=== PATIENT | female | born 1975 | race Caucasian/White ===

== ENCOUNTER → 2016-07-16 | Outpatient (CLI) | payer OTHER, MEDICAID ==
[~2016-07-16] MED LIST: ALBU8.5H3 INH; FLUO20CA8 PO; LEVO750T26 PO
== END | disposition home or self-care (01) ==
LOC: CFH 16:57
PROVIDERS: ATTEND Nurse Practitioner Family
DX: J44.1 Chronic obstructive pulmonary disease with (acute) exacerbation (principal); J20.9 Acute bronchitis, unspecified
CPT/HCPCS: 71020

== ENCOUNTER → 2017-05-27 | Outpatient (CLI) | payer OTHER ==
[~2017-05-27] MED LIST changes: -ALBU8.5H3 INH; +ALBU8.5H8 INH
== END | disposition home or self-care (01) ==
LOC: CFH 10:42
PROVIDERS: ATTEND Nurse Practitioner Family
DX: R07.9 Chest pain, unspecified (principal); R06.00 Dyspnea, unspecified
CPT/HCPCS: 71046

== ENCOUNTER 2018-10-07 13:37 | Outpatient (CLI) | payer MEDICAID, OTHER | END 2018-10-07 23:59 | disposition home or self-care (01) | LOC: CFH 13:37 | PROVIDERS: ATTEND Internal Medicine | DX: R06.02 Shortness of breath (principal) | CPT/HCPCS: 71250 ==

== ENCOUNTER 2019-01-06 12:51 | Emergency (ER) | payer MEDICAID ==
[~2019-01-06] VITALS: Ht 172.7 cm; Wt 124.0 kg
[2019-01-06 13:58] LABS: RAPID INFLUENZA A Negative (Negative); RAPID INFLUENZA B Negative (Negative)
[2019-01-06 14:02] LABS: BASOPHILS % (AUTO) 0 % (0-1); EOSINOPHILS # (AUTO) 0.01 x10^3/uL (0-0.4); EOSINOPHILS % (AUTO) 0 % (1-7); LYMPHOCYTES # (AUTO) 0.41 x10^3/uL (1-3.4); LYMPHOCYTES % (AUTO) 5 % (22-44); MD NO; MEAN CORPUSCULAR HEMOGLOBIN 31.5 pg (27.0-34.8); MEAN CORPUSCULAR HGB CONC 32.9 g/dL (32.4-35.8); MEAN CORPUSCULAR VOLUME 95.6 fL (80-100); MEAN PLATELET VOLUME 8.3 fL (7.4-10.4); MONOCYTES % (AUTO) 6 % (2-9); NEUTROPHILS # (AUTO) 7.64 x10^3/uL (1.8-6.8); NEUTROPHILS % (AUTO) 89 % (42-75); PLATELET COUNT 307 x10^3/uL (130-400); RED BLOOD COUNT 4.94 x10^6/uL (3.82-5.3); RED CELL DISTRIBUTION WIDTH 17.1 % (9.6-15.2)
[2019-01-06 14:08] LABS: ALANINE AMINOTRANSFERASE 25 U/L (12-78); ALBUMIN 3.4 g/dL (3.4-5.0); ANION GAP 7 mmol/L (5-15); CALCIUM 8.5 mg/dL (8.5-10.1); CHLORIDE 103 mmol/L (98-107); CREATININE 0.93 mg/dL (0.55-1.02)
[2019-01-06 14:10] LABS: ALKALINE PHOSPHATASE 90 U/L (45-117); BILIRUBIN,TOTAL 0.5 mg/dL (0.2-1.0); TOTAL PROTEIN 7.4 g/dL (6.4-8.2)
--- NOTE | 2019-01-06 14:23 | NUR ---
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
--- NOTE | 2019-01-06 14:38 | NUR ---
PT HERE TODAY FOR SOB AND COUGH THAT STARTED LAST NIGHT. DENIES CP. STATES SHE "GETS PNA AND GOES SEPTIC. WANTED TO GET AHEAD OF IT THIS TIME." PT RESTING ON GURNEY. CONNECTED TO MONITOR. OCCASSIONAL COUGH. NON PRODUCTIVE. STRONG. FAMILY AT BEDSIDE. MD WAS AT BEDSIDE TO ASSESS PT. NADN. VSS. PROVIDED WITH BLANKET. LABS AND CXR RESULTS BACK. MD HAS ORDERED RT TREATMENT. PT AWARE OF POC.
[2019-01-06] MEDS ORDERED: KETOROLAC 60 MG/2 ML ONE (14:43)
--- NOTE | 2019-01-06 14:45 | NUR ---
PT MEDICATED PER EMAR.
[2019-01-06] MEDS ORDERED: ALBUTEROL/IPRATROPIUM 2.5MG/0.5MG, 3 ML ONE (14:47)
--- NOTE | 2019-01-06 14:54 | NUR ---
RESPIRATORY THERAPIST AT BEDSIDE.
[2019-01-06] MEDS ORDERED: ALBUTEROL/IPRATROPIUM 2.5MG/0.5MG, 3 ML NPPB ONE (15:00)
[2019-01-06] MEDS ORDERED: KETOROLAC 30 MG/1 ML IM ONE (15:00)
[2019-01-06 15:23] VITALS: BP 103/74
--- NOTE | 2019-01-06 15:23 | NUR ---
PT RESTING ON NATA. IRMA. VSS. DENIES NEEDS.
--- NOTE | 2019-01-06 15:25 | NUR ---
PT 88-89% ON RA. PLACED ON 2L NC. NOW 96%.
--- NOTE | 2019-01-06 15:35 | NUR ---
THIS RN WALKED WITH PT- PT WAS NOT ON O2 AND WAS SATURATING @ 90-92% THROUGHOUT WALK. WALKED APPROXIMATELY 50 FEET.
== END 2019-01-06 16:42 | disposition home or self-care (01) ==
LOC: ED 16:15
DX: J06.9 Acute upper respiratory infection, unspecified (principal); J98.01 Acute bronchospasm; I10 Essential (primary) hypertension; E78.00 Pure hypercholesterolemia, unspecified
CPT/HCPCS: 36415; 71046; 80053; 85025; 87400; 93005; 94640; 96372; 99284; J1885; J7620